=== PATIENT | male | born 1985 | race African-American/Black ===

== ENCOUNTER → 2019-12-17 07:39 | Outpatient (CLI) | payer BC, OTHER ==
--- NOTE | 2019-12-17 08:23 | NUR ---
PT CONSENTED FOR A LEFT HIP ARTHROGRAM WITH MRI. TIME OUT PERFORMED AT 0825 BY CURLY PADILLA(R) AND DR ROSA.
== END | disposition home or self-care (01) ==
LOC: D.RAD 07:39
PROVIDERS: ATTEND Orthopaedic Surgery
DX: M24.852 Other specific joint derangements of left hip, not elsewhere classified (principal)

== ENCOUNTER → 2020-01-13 08:49 | Outpatient (CLI) | payer BC, OTHER ==
--- NOTE | ~2020-01-13 | HEMODYNAMI ---
PATIENT:MARINA THAYER MEDICAL RECORD: [id number] : 83 LOCATION:LEX ADMISSION DATE: 01/13/20 Generatedon:01/13/202010:34 Patient name: MARINA THAYER Patient #: [id number] SSN: : 1985 Date of study: 01/13/2020 Page: Of Hemodynamic Procedure Report Patient Data Patient Demographics Procedure consent was obtained First Name: MARINA Gender: Male Last Name: FLACA : 1985 Middle Initial: ASCENCION Age: 34 year(s) Patient #: [id number] Race: Black Additional ID: [id number] Contact details [address]: [address] [place] [address] State: [place] City: [place] Zip code: [address] Admission Admission Data Admission Date: 01/13/2020 Admission Time: 8:49 Procedure Procedure Types Cath Procedure Peripheral Cath Diagnostic Procedure Miscellaneous Aspiration/Injection (Joint) Procedure Description Procedure Date Procedure Date: 01/13/2020 Procedure Start Time: 10:22 Procedure Staff Name Function Jersey Vines MD Performing Physician Phani Bustamante RT Monitor LOTTIE VELASCO RT Monitor Procedure Data Cath Procedure Fluoroscopy Diagnostic fluoroscopy Total fluoroscopy Time: 0.1 time: 0.1 min min Diagnostic fluoroscopy Total fluoroscopy dose: 3 dose: 3 mGy mGy Contrast Material Contrast Material Type Amount (ml) Isovue 200 5 Hemodynamics Rest Pre Cath Intra NCS Post Cath Procedure Log Time Note 9:47:09 Phani Bsutamante RT (R) (CV) sent for patient. Start room use. 9:47:22 Patient received from Other to IR Alert and oriented. Tansferred to table in Supine position. 9:47:25 Signed procedure consent form obtained from patient. 9:47:26 Correct patient and procedure confirmed by team. 9:47:27 - 9:47:28 Pre-procedure instructions explained to patient. 9:47:28 Pre-op teaching completed and patient verbalized understanding. 9:47:46 PT STATES ALLERGIC TO COCONUT 9:47:50 Is patient on blood thinner?No 9:48:01 Left Hip was prepped with betadine and draped in sterile fashion. 10:17:33 SAFE-T PLUS MYELOGRAM TRAY opened to sterile field. 10:20:54 Physician arrived 10:20:55 --------ALL STOP TIME OUT------ 10:20:55 Final Timeout: patient, procedure, and site verified with staff and physician. All members of the team are in agreement. 10:20:59 Left groin site verified by team. 10:21:07 Sedation plan: Local Anesthetic Medication:Lidocaine 10:22:16 Procedure started. 10:22:16 Full Disclosure recording started 10:22:22 Local anesthetic to Left Hip with Lidocaine 1% by Jersey Vines MD.INITIAL ACCESS ONLY 10:30:17 Procedure ended.(Physican Out) 10:32:28 Fluoroscopy time 00.10 minutes. 10:32:31 Flurop Dose total: 3 10:32:31 Fluoroscopy dose: 3 mGy 10:33:06 Contrast amount:Isovue 200 5ml. 10:33:21 BANDAIDE APPLIED SITE STABLE PT SENT HOME Device Usage Item Name Manufacture Quantity Catalog Hospital Part Current Minimal Lot# / Number Charge Number Stock Stock Serial# Code SAFE-T [employer] 1 [id number] PLUS MYELOGRAM TRAY Signature Audit Vivian Stage Time Signature Unsigned Intra-Procedure 01/13/2020 Phani 10:34:21 AM [facility] RT (R) (CV) [facility] [address] [place] [address]
== END | disposition home or self-care (01) ==
LOC: D.RAD 08:49
PROVIDERS: ATTEND Orthopaedic Surgery
DX: M25.552 Pain in left hip (principal)